=== PATIENT | female | born 1960 | race African-American/Black ===

== ENCOUNTER 2023-11-26 20:26 | Emergency (ER) | payer OTHER ==
[~2023-11-26] VITALS: Ht 152.4 cm; Wt 92.5 kg
[2023-11-26 21:36] LABS: Basophils # (auto) 0.1 10 ^3/uL (0-0.2); Basophils % (auto) 0.8 % (0.0-2.0); Eosinophils # (auto) 0.3 10 ^3/uL (0-0.8); Eosinophils % (auto) 4.9 % (0.0-7.0); Hematocrit 42.7 % (36.0-46.0); Hemoglobin 13.9 g/dL (12.2-16.2); Lymphocytes # (auto) 2.1 10 ^3/uL (0.4-5.4); Lymphocytes % (auto) 34.5 % (10.0-50.0); Mean Corpuscular Hemoglobin 30.9 pg (28.0-32.0); Mean Corpuscular Hgb Conc. 32.7 g/dL (32.0-36.0); Mean Corpuscular Volume 94.5 fL (80.0-100.0); Monocytes # (auto) 0.5 10 ^3/uL (0-1.3); Monocytes % (auto) 7.4 % (0.0-12.0); Neutrophils # (auto) 3.2 10 ^3/uL (1.6-8.6); Neutrophils % (auto) 52.4 % (37.0-80.0); Nucleated Red Blood Cells % 0.1 %; Red Blood Cells 4.51 10^6/uL (4.0-5.20); Red Cell Distribution Width 14.7 % (11.8-14.3); White Blood Cell 6.2 10^3/uL (4.4-10.8)
[2023-11-26 21:50] LABS: Alanine Aminotransferase 49 U/L (7-40); Albumin 4.4 g/dL (3.2-4.8); Alkaline Phosphatase 118 U/L (46-116); Anion Gap 7 (5-15); Aspartate Aminotransferase 55 U/L (13-40); BUN/Creatinine Ratio 6.4 (10.0-20.0); Bilirubin, Total 0.4 mg/dL (0.2-1.0); Blood Urea Nitrogen 7 mg/dL (9-23); Calcium 9.4 mg/dL (8.7-10.4); Carbon Dioxide 25 mmol/L (20-30); Chloride 109 mmol/L (98-107); Glucose 105 mg/dL (74-106); Potassium 3.9 mmol/L (3.5-5.1); Sodium 141 mmol/L (136-145)
[2023-11-26] MEDS ORDERED: SODIUM CHLORIDE 0.9% 1,000 ML IV ONE (22:00)
[2023-11-26] MEDS ORDERED: PROMETHAZINE-DM 5 ML ORAL SYRUP PO ONE (22:00)
[2023-11-26] MEDS ORDERED: METOCLOPRAMIDE HCL 5MG/ml INJ 2ml VIAL IV ONE (22:00)
[2023-11-26] MEDS ORDERED: DexAMETHasone SOD PHOS 10MG/1ML VIAL INJ IV ONE (22:00)
[2023-11-26] MEDS ORDERED: MORPHINE SULFATE 4 MG/ML SYR/VIAL IV ONE (22:00)
[2023-11-27 00:20] VITALS: PULSE 99; RESP 12; O2SAT 99
[2023-11-27 00:53] LABS: COVID19 ANTIGEN SOFIA FIA NEGATIVE (NEGATIVE); Rapid Influenza A Negative (Negative); Rapid Influenza B Negative (Negative)
[2023-11-27 01:27] LABS: Urine Bacteria FEW /hpf (None Seen); Urine Blood Negative /uL (Negative); Urine Clarity Clear (Clear); Urine Color Yellow (Yellow); Urine Mucus FEW (None Seen); Urine Protein, UAD TRACE (Negative); Urine Specific Gravity 1.015 (1.001-1.035); Urine Urobilinogen Normal (Negative); Urine WBC 2 /hpf (0 - 5)
[2023-11-27] MEDS ORDERED: GUAI600T23 PO (03:22)
[2023-11-27] MEDS ORDERED: PRED20TA2 PO (03:22)
[2023-11-27] MEDS ORDERED: METO-281 PO (03:22)
[2023-11-27] MEDS ORDERED: AUG875T PO (03:22)
[2023-11-27] MEDS ORDERED: IBUP-1456 PO (03:22)
[2023-11-27 03:46] VITALS: BP 105/69; PULSE 104; RESP 18; TEMP 97.9; O2SAT 96
== END 2023-11-27 03:47 | disposition home or self-care (01) ==
LOC: ER 20:26
DX: J40 Bronchitis, not specified as acute or chronic (principal); J44.1 Chronic obstructive pulmonary disease with (acute) exacerbation; R07.89 Other chest pain; Z88.8 Allergy status to other drugs, medicaments and biological substances; Z20.822 Contact with and (suspected) exposure to COVID-19
CPT/HCPCS: 36415; 71045; 80053; 81001; 83880; 84484; 85025; 87426; 87804; 93005; 96361; 96374; 96375; 99284; J1100; J2270; J2765; J7030

== ENCOUNTER 2025-08-16 13:35 | Emergency (ER) | payer OTHER ==
[~2025-08-16] VITALS: Ht 154.9 cm; Wt 96.0 kg
[~2025-08-16 13:35] MED LIST: AUG875T PO; GUAI600T78 PO; IBUP-1456 PO; METO-281 PO; PRED20TA2 PO
--- NOTE | 2025-08-16 14:56 | ED.PDOC ---
History of Present Illness HPI Comments A 65 YEAR OLD FEMALE PRESENTS TO THE ED WITH COMPLAINT OF MIGRAINE HEADACHE AND CHRONIC LOWER BACK PAIN. PATIENT STATES SHE HAS A HISTORY OF MIGRAINE HEADACHES AND HAS BEEN EXPERIENCING 1 FOR THE PAST 2 DAYS. PATIENT REPORTS SHE ALSO HAS A HISTORY OF CHRONIC LOWER BACK PAIN WITH SCIATICA AND HAS BEEN EXPERIENCING LOWER BACK PAIN THAT RADIATES DOWN HER RIGHT LEG FOR THE PAST 2 DAYS. PATIENT NOTES THAT SHE HAS BEEN TAKING HER IBUPROFEN AND GABAPENTIN WITH NO IMPROVEMENT. PATIENT DENIES SADDLE ANESTHESIA, URINARY INCONTINENCE, BOWEL INCONTINENCE, VISION CHANGES, SLURRED SPEECH, ONE-SIDED WEAKNESS, FACIAL DROOP, FEVER, CHILLS, SHORTNESS OF BREATH, CHEST PAIN, ABDOMINAL PAIN, NAUSEA, VOMITING, OR OTHER COMPLAINTS. NO OTHER SYMPTOMS OR MODIFYING FACTORS AT THIS TIME. PATIENT IS ALERT, ORIENTED X 4, AND HAS STEADY GAIT. Chief Complaint: Headache Time Seen by MD: 13:44 Reviewed Notes: Nurses Notes, Medications, Allergies Allergies: Coded Allergies: Acetaminophen (Verified Allergy, Unknown, 08/16/25) Hydrocodone (Verified Allergy, Unknown, 08/16/25) Ondansetron (Verified Allergy, Unknown, 11/27/23) Home Meds Active Scripts Tramadol HCl (Tramadol HCl) 50 Mg Tab, 50 MG PO BID, #20 TAB Prov:CHARLEEN OSULLIVAN 08/16/25 Meclizine HCl (Meclizine 25) 25 Mg Tab, 25 MG PO BID, #30 TAB Prov:CHARLEEN OSULLIVAN 08/16/25 Guaifenesin (Mucinex) 600 Mg Tab, 600 MG PO Q12HR PRN, #20 TAB prn cough/congestion Prov:JAMES PENN MD 11/27/23 Prednisone (Prednisone) 20 Mg Tab, 40 MG PO DAILY for 4 Days, #8 TAB Prov:JAMES PENN MD 11/27/23 Ibuprofen (Ibuprofen) 800 Mg Tab, 1 TAB PO Q8HPRN PRN, #30 TAB prn pain, take with food Prov:JAMES PENN MD 11/27/23 Metoclopramide Hcl (Reglan) 10 Mg Tab, 10 MG PO QID, #20 TAB prn nausea/vomiting Prov:JAMES PENN MD 11/27/23 Amoxicillin & Pot Clavulanate (AUGMENTIN TABLET) 875 Mg Tb, 875 MG PO BID for 10 Days, #20 TAB Prov:JAMES PENN MD 11/27/23 Information Source: Patient Mode of Arrival: Ambulatory Severity: Moderate Timing: Days Duration: Since onset, Days Prehospital treatment: None Medication Refill: For: Other (MIGRAINE HEADACHE AND SCIATICA) Past Medical History PAST MEDICAL HISTORY: COPD Past Medical History (Other): MIGRAINE HEADACHES, CHRONIC LOWER BACK PAIN Surgical History: Denies all surgeries HIM MANAGER History: No Pertinent HIM MANAGER History Family History Family History: Reviewed,noncontributory to illness Social History Smoker: Other Alcohol: Denies ETOH Use Drugs: Marijuana Lives In: Home Constitutional: denies: chills, diaphoresis, fatigue, fever, malaise, sweats, weakness, others EENTM: denies: blurred vision, double vision, ear bleeding, ear discharge, ear drainage, ear pain, ear ringing, eye pain, eye redness, hearing loss, mouth pain, mouth swelling, nasal discharge, nose bleeding, nose congestion, nose pain, photophobia, tearing, throat pain, throat swelling, voice changes, others Respiratory: denies: cough, hemoptysis, orthopnea, SOB at rest, shortness of breath, SOB with excertion, stridor, wheezing, others Cardiovascular: denies: chest pain, dizzy spells, diaphoresis, Dyspnea on exertion, edema, irregular heart beat, left arm pain, lightheadedness, palpitations, PND, syncope, others Gastrointestinal: denies: abdomen distended, abdominal pain, blood streaked bowels, constipated, diarrhea, dysphagia, difficulty swallowing, hematemesis, melena, nausea, poor appetite, poor fluid intake, rectal bleeding, rectal pain, vomiting, others Genitourinary: denies: abnormal vagina bleeding, burning, dyspareunia, dysuria, flank pain, frequency, hematuria, incontinence, pain, , vagina discharge, urgency, others Neurological: reports: headache; denies: dizziness, fainting, left sided numbness, left sided weakness, numbness, paresthesia, pre-existing deficit, right sided numbness, right sided weakness, seizure, speech problems, tingling, tremors, weakness, others Musculoskeletal: reports: back pain (LOWER BACK PAIN THAT RADIATES DOWN RIGHT LEG), muscle pain; denies: gout, joint pain, joint swelling, muscle stiffness, neck pain Integumetry: denies: bruises, change in color, change in hair/nails, dryness, laceration, lesions, lumps, rash, wounds, others Allergic/Immunocompromised: denies: Difficulty Healing, Frequent Infections, Hives, Itching, others Hematologic/Lymphatic: denies: anemia, blood clots, easy bleeding, easy bruising, swollen glands, others Endocrine: denies: excessive hunger, excessive sweating, excessive thirst, excessive urination, flushing, intolerance to cold, intolerance to heat, unexplained weight gain, unexplained weight loss, others Psychiatric: denies: anxiety, bipolar disorder, depression, hopeless, panic disorder, schizophrenia, sleepless, suicidal, others All Other Systems: Reviewed and Negative Physical Exam General Appearance: No Apparent Distress, Obese HEENT: Normal ENT Inspection, PERRL/EOMI, Pharynx Normal, TMs Normal Neck: Full Range of Motion, Non-Tender, Normal, Normal Inspection Respiratory: Chest Non-Tender, Lungs Clear, No Accessory Muscle Use, No Respiratory Distress, Normal Breath Sounds Cardiovascular: No Edema, No JVD, No Murmur, No Gallop, Normal Peripheral Pulses, Regular Rate/Rhythm Breast Exam: Deferred Gastrointestinal: No Organomegaly, Non Tender, No Pulsatile Mass, Normal Bowel Sounds, Soft Genitalia: Deferred Pelvic: Deferred Rectal: Deferred Extremities: No calf tenderness, Normal capillary refill, Normal inspection, Normal range of motion, Non-tender, No pedal edema Musculoskeletal : Location: Bilateral Extremity Location: Back Apperance: Tenderness (muscle spasm on lower back, no bony tenderness, swelling and deformity. 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 Was a procedure done?: No Differential Dx Considerations may include: MIGRAINE HEADACHE, TENSION HEADACHE, BRAIN MASS, BRAIN BLEED, SCIATICA, HISTORY OF CHRONIC LOWER BACK PAIN, ACUTE EXACERBATION OF CHRONIC LOWER BACK PAIN X-Ray, Labs, Meds, VS Vital Signs Date Time Temp Pulse Resp B/P (MAP) Pulse Ox O2 Delivery O2 Flow Rate FiO2 08/16/25 15:04 98.6 104 16 93/66 (75) 98 98.6 08/16/25 15:04 104 16 98 Room Air 08/16/25 13:37 98.5 115 18 142/[address] HEAD WITHOUT CONTRAST INDICATION: HEADACHE COMPARISON: None TECHNIQUE: CT of the head without intravenous contrast. RADIATION DOSE: CTDIvol: 60.84 mGy, DLP: 60.84 mGy*cm FINDINGS: There is no evidence of acute intracranial hemorrhage, extra-axial collection, mass effect, midline shift, herniation or hydrocephalus. The ventricles, sulci and cisterns are age appropriate. The lazo-white differentiation is intact. The visualized paranasal sinuses and mastoid air cells are clear. The surrounding soft tissues and osseous structures are unremarkable. IMPRESSION: 1. No evidence of acute intracranial hemorrhage, mass effect or hydrocephalus. ATED BY: NARESH MCKEON MD DICTATED DATE/TIME: 08/16/251454 SIGNED BY: NARESH MCKEON MD SIGNED DATE/TIME: 08/16/251454 CC: X-Ray, Labs, Meds, VS Comment EXTERNAL MEDICAL RECORDS REVIEWED: [NONE] INDEPENDENT HISTORIANS: [NONE] SOCIAL DETERMINANTS OF HEALTH: [NONE] LABS ORDERED: NONE REVIEWED AND INTERPRETED RESULTS: NONE IMAGING ORDERED: CT BRAIN TREATMENTS ORDERED: NONE PROCEDURES PERFORMED: NONE CRITICAL CARE TIME: NONE I HAVE DISCUSSED THE PATIENT WITH THE ATTENDING PHYSICIAN DR. PLEITEZ AND HE AGREES WITH THE PATIENT'S PLAN OF CARE AND DISPOSITION. BASED ON HISTORY OF PRESENT ILLNESS, AND PHYSICAL EXAM, PATIENT WILL BE DISCHARGED HOME. DISCUSSED PLAN FOR DISCHARGE HOME WITH RX [ULTRAM]. MEDICATION WARNINGS GIVEN. SHARED DECISION MAKING: DISCUSSED WITH PATIENT THAT THEIR WORKUP WAS NORMAL. PATIENT INSTRUCTED TO FOLLOW UP WITH PRIMARY CARE PROVIDER IN 1-2 DAYS FOR RE- EVALUATION OF SYMPTOMS. PATIENT VERBALIZES UNDERSTANDING TO RETURN TO ED FOR NEW OR WORSENING SYMPTOMS OR IF FOLLOW UP WITH PCP CANNOT BE OBTAINED. PATIENT FEELS COMFORTABLE GOING HOME AT THIS TIME. ALL QUESTIONS ADDRESSED AT TIME OF DISCHARGE. Images Reviewed?: Images reviewed and evaluated by me Time of 1ST Reevaluation: 15:26 Reevaluation 1ST: Improved Patient Education/Counseling: Diagnosis, Treatment, Need For Follow Up Family Education/Counseling: Diagnosis, Treatment, Need For Follow Up Medical Screening: No EMC Exist At This Time SEPSIS Sepsis Screen Date sepsis recognized/suspect: Aug 16, 2025 Time Sepsis recognized/suspect: 1340 Recent Procedure: No On Antibiotic Therapy: No Respiratory Rate >20: No Heart Rate >90: No Temp<36 C (96.8 F) or >38.3 C: No SBP <90 or MAP <65 mmHG: No New Acute Mental Status Change: No Is the patient on CPAP, BIPAP,: No Physician Orders Head Without Contrast (08/16/25 14:18) Vital Signs Date Time Temp Pulse Resp B/P (MAP) Pulse Ox O2 Delivery O2 Flow Rate FiO2 08/16/25 15:04 98.6 104 16 93/66 (75) 98 98.6 08/16/25 15:04 104 16 98 Room Air 08/16/25 13:37 98.5 115 18 142/90 97 98.5 Departure 1 Departure Time of Disposition: 15:26 Impression: Primary Impression: Migraine headache without aura Qualified Codes: G43.009 - Migraine without aura, not intractable, without status migrainosus Additional Impression: Acute exacerbation of chronic low back pain Disposition: HOME / SELF CARE / HOMELESS Condition: Stable Additional Instructions: FOLLOW-UP WITH PCP IN 1 TO 2 DAYS. TAKE MEDICATIONS PRESCRIBED. RETURN TO ED FOR ANY NEW OR WORSENING SYMPTOMS. e-Prescriptions Tramadol HCl (Tramadol HCl) 50 Mg Tab 50 MG PO BID, #20 TAB Prov: CHARLEEN OSULLIVAN 08/16/25 Meclizine HCl (Meclizine 25) 25 Mg Tab 25 MG PO BID, #30 TAB Prov: CHARLEEN OSULLIVAN 08/16/25 Discharged With: Self Critical Care Note Critical Care Time?: No Stability Stability form required: No I personally scribed for CHARLEEN OSULLIVAN ([email or web address]) on 08/16/25 at 14:56. Electronically submitted by Ab Hernandez ([email or web address]). I personally scribed for CHARLEEN OSULLIVAN ([email or web address]) on 08/16/25 at 15:12. Electronically submitted by Ab Hernandez ([email or web address]). CHARLEEN OSULLIVAN Aug 16, 2025 14:56
[2025-08-16 15:04] VITALS: BP 93/66; PULSE 104; RESP 16; TEMP 98.6; O2SAT 98
[2025-08-16] MEDS ORDERED: TRAM-626 PO (15:22)
[2025-08-16] MEDS ORDERED: MECL1TAB42 PO (15:22)
== END 2025-08-16 15:22 | disposition home or self-care (01) ==
LOC: ER 13:35
DX: G43.009 Migraine without aura, not intractable, without status migrainosus (principal); G89.29 Other chronic pain; F12.90 Cannabis use, unspecified, uncomplicated; J44.9 Chronic obstructive pulmonary disease, unspecified; F17.200 Nicotine dependence, unspecified, uncomplicated; Z79.899 Other long term (current) drug therapy; Z88.5 Allergy status to narcotic agent; Z79.52 Long term (current) use of systemic steroids
CPT/HCPCS: 70450

== ENCOUNTER 2025-09-06 11:09 | Emergency (ER) | payer OTHER ==
[~2025-09-06] VITALS: Ht 154.9 cm; Wt 94.5 kg
[~2025-09-06 11:09] MED LIST changes: +MECL1TAB42 PO; +TRAM-626 PO
--- NOTE | 2025-09-06 12:22 | ED.PDOC ---
Chavez. trauma (HPI) HPI Comments A 65 YEAR OLD FEMALE PRESENTS TO THE ED WITH COMPLAINT OF LEFT RIB PAIN, LEFT SHOULDER PAIN, AND LOWER BACK PAIN STATUS POST FALL. PATIENT STATES SHE HAS A HISTORY OF CHRONIC LOWER BACK PAIN AND HER LEG ACCIDENTALLY GAVE OUT A RESULT OF HER BACK PAIN CAUSING HER TO FALL AND LAND ON THE LEFT SIDE OF HER BODY. PATIENT REPORTS SHE IS NOW EXPERIENCING LEFT RIB PAIN, LEFT SHOULDER PAIN, AND LOWER BACK PAIN THAT IS WORSE WITH MOVEMENT. PATIENT DENIES HEAD INJURY, NECK INJURY, LOC, SADDLE ANESTHESIA, URINARY INCONTINENCE, BOWEL INCONTINENCE, FEVER, CHILLS, SHORTNESS OF BREATH, CHEST PAIN, ABDOMINAL PAIN, NAUSEA, VOMITING, HEADACHE, OR OTHER COMPLAINTS. NO OTHER SYMPTOMS OR MODIFYING FACTORS AT THIS TIME. PATIENT IS ALERT, ORIENTED X 4, AND HAS STEADY GAIT. Chief Complaint: Fall Injury Time Seen by MD: 11:35 Reviewed notes: Nurses Notes, Medications, Allergies Allergies: Coded Allergies: Acetaminophen (Verified Allergy, Unknown, 08/16/25) Hydrocodone (Verified Allergy, Unknown, 08/16/25) Ondansetron (Verified Allergy, Unknown, 11/27/23) Home Meds Active Scripts Methocarbamol (Methocarbamol) 750 Mg Tab, 750 MG PO BID, #30 TAB Prov:CHARLENE OSULLIVAN 09/06/25 Ibuprofen (Ibuprofen) 800 Mg Tab, 1 TAB PO TID, #30 TAB Prov:CHARLEEN OSULLIVAN 09/06/25 Tramadol HCl (Tramadol HCl) 50 Mg Tab, 50 MG PO BID, #20 TAB Prov:CHARLEEN OSULLIVAN 08/16/25 Meclizine HCl (Meclizine 25) 25 Mg Tab, 25 MG PO BID, #30 TAB Prov:CHARLEEN OSULLIVAN 08/16/25 Guaifenesin (Mucinex) 600 Mg Tab, 600 MG PO Q12HR PRN, #20 TAB prn cough/congestion Prov:JAMES PENN MD 11/27/23 Prednisone (Prednisone) 20 Mg Tab, 40 MG PO DAILY for 4 Days, #8 TAB Prov:JAMES PENN MD 11/27/23 Ibuprofen (Ibuprofen) 800 Mg Tab, 1 TAB PO Q8HPRN PRN, #30 TAB prn pain, take with food Prov:JAMES PENN MD 11/27/23 Metoclopramide Hcl (Reglan) 10 Mg Tab, 10 MG PO QID, #20 TAB prn nausea/vomiting Prov:JAMES PENN MD 11/27/23 Amoxicillin & Pot Clavulanate (AUGMENTIN TABLET) 875 Mg Tb, 875 MG PO BID for 10 Days, #20 TAB Prov:JAMES PENN MD 11/27/23 Information Source: Patient Mode of Arrival: Ambulatory Severity: Moderate Timing: Hours Duration: Since onset, Hours Prehospital treatment: None Location: Back, (L) Shoulder, Other (LEFT RIB) Location of laceration: None Mechanism: Fall Associated signs and symtoms: None Past Medical History PAST MEDICAL HISTORY: COPD Past Medical History (Other): LUPUS AND LOW BACK PAIN Surgical History: Denies all surgeries DURALUMIN METALWORKER History: No Pertinent DURALUMIN METALWORKER History Family History Family History: Reviewed,noncontributory to illness Social History Smoker: Non-Smoker Alcohol: Denies ETOH Use Drugs: Marijuana Lives In: Home Constitutional: denies: chills, diaphoresis, fatigue, fever, malaise, sweats, weakness, others EENTM: denies: blurred vision, double vision, ear bleeding, ear discharge, ear drainage, ear pain, ear ringing, eye pain, eye redness, hearing loss, mouth pain, mouth swelling, nasal discharge, nose bleeding, nose congestion, nose pain, photophobia, tearing, throat pain, throat swelling, voice changes, others Respiratory: denies: cough, hemoptysis, orthopnea, SOB at rest, shortness of breath, SOB with excertion, stridor, wheezing, others Cardiovascular: denies: chest pain, dizzy spells, diaphoresis, Dyspnea on exertion, edema, irregular heart beat, left arm pain, lightheadedness, palpitations, PND, syncope, others Gastrointestinal: denies: abdomen distended, abdominal pain, blood streaked bowels, constipated, diarrhea, dysphagia, difficulty swallowing, hematemesis, melena, nausea, poor appetite, poor fluid intake, rectal bleeding, rectal pain, vomiting, others Genitourinary: denies: abnormal vagina bleeding, burning, dyspareunia, dysuria, flank pain, frequency, hematuria, incontinence, pain, , vagina discharge, urgency, others Neurological: denies: dizziness, fainting, headache, left sided numbness, left sided weakness, numbness, paresthesia, pre-existing deficit, right sided numbne ss, right sided weakness, seizure, speech problems, tingling, tremors, weakness, others Musculoskeletal: reports: back pain, joint pain, muscle pain, others (LEFT SHOULDER PAIN, LEFT RIB PAIN); denies: gout, joint swelling, muscle stiffness, neck pain Integumetry: denies: bruises, change in color, change in hair/nails, dryness, laceration, lesions, lumps, rash, wounds, others Allergic/Immunocompromised: denies: Difficulty Healing, Frequent Infections, Hives, Itching, others Hematologic/Lymphatic: denies: anemia, blood clots, easy bleeding, easy bruising, swollen glands, others Endocrine: denies: excessive hunger, excessive sweating, excessive thirst, excessive urination, flushing, intolerance to cold, intolerance to heat, unexplained weight gain, unexplained weight loss, others Psychiatric: denies: anxiety, bipolar disorder, depression, hopeless, panic disorder, schizophrenia, sleepless, suicidal, others All Other Systems: Reviewed and Negative Physical Exam General Appearance: No Apparent Distress, Obese HEENT: Normal ENT Inspection, PERRL/EOMI, Pharynx Normal, TMs Normal Neck: Full Range of Motion, Non-Tender, Normal, Normal Inspection Respiratory: Chest Non-Tender, Lungs Clear, No Accessory Muscle Use, No Respiratory Distress, Normal Breath Sounds Cardiovascular: No Edema, No JVD, No Murmur, No Gallop, Normal Peripheral Pulses, Regular Rate/Rhythm Breast Exam: Deferred Gastrointestinal: No Organomegaly, Non Tender, No Pulsatile Mass, Normal Bowel Sounds, Soft Genitalia: Deferred Pelvic: Deferred Rectal: Deferred Extremities: No calf tenderness, Normal capillary refill, Normal range of motion, No pedal edema, Tender (ON LEFT SHOULDER, NO BONY TENDERNESS, SWELLING AND DEFORMITY, NORMAL ROM. ) Musculoskeletal : Location: Bilateral Extremity Location: Back, Other (LEFT RIBS ) Apperance: Tenderness (TENDERNESS AND MUSCLE SPASM ON LEFT MIDDLE RIBS, NO BONY TENDERNESS, SWELLING AND DEFORMITY. ), Tenderness: Moderate (TENDERNESS AND MUSCLE SPASM ON LOWER BACK, NO BONY TENDERNESS AND SWELLING, NO DEFORMITY OF LOWER BACK. 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 Was a procedure done?: No Differential Diagnosis Multiple Trauma: Fractures, Spine Injury, Contusion, Other (MUSCLE STRAIN, INTERCOSTAL MUSCLE STRAIN, RIB CONTUSION, RIB SPRAIN, LOW BACK STRAIN) Neck Injury: N/A X-Ray, Labs, Meds, VS Vital Signs Date Time Temp Pulse Resp B/P (MAP) Pulse Ox O2 Delivery O2 Flow Rate FiO2 09/06/25 13:12 98.3 108 18 93/60 (71) 95 98.3 09/06/25 13:12 108 18 95 Room Air 09/06/25 11:12 97.9 112 18 118/81 94 97.9 EXAMINATION: XY L RIB X RAY INDICATION: Pain; FALL COMPARISON: XR CHEST 1 VIEW on DOS: 02/15/25, XY CHEST PORTABLE on DOS: 11/26/23 TECHNIQUE: Frontal view of the chest and 3 views of the left ribs history FINDINGS: No focal consolidation, pleural effusion or significant pneumothorax. Bibasilar opacities. Normal cardiomediastinal silhouette. No displaced bilateral rib fracture. IMPRESSION: Bibasilar opacities. No displaced left rib fracture. ATED BY: JOVANA ISAAC MD DICTATED DATE/TIME: 09/06/25 1336 SIGNED BY: JOVANA ISAAC MD SIGNED DATE/TIME: 09/06/25 1336 CC: EXAM: XY L SHOULDER 2+ VIEW XRAY CLINICAL INDICATION: FALL TECHNIQUE: XY L SHOULDER 2+ VIEW XRAY Comparison: None FINDINGS/IMPRESSION: There is no evidence of acute fracture or dislocation. The visualized joint space is well maintained. The alignment is anatomical. There is no radiopaque foreign body. ATED BY: NATHANAEL RODRIGUEZ MD DICTATED DATE/TIME: 09/06/25 1329 SIGNED BY: NATHANAEL RODRIGUEZ MD SIGNED DATE/TIME: 09/06/25 132 CC: INDICATION: FALL TECHNIQUE: Frontal and lateral views of the lumbar spine were obtained. COMPARISON: None FINDINGS: . There are no fractures or subluxations. Vertebral body heights and disc spaces are well maintained. Paravertebral soft tissues are unremarkable. IMPRESSION: 1. Of the visualized spine, there is no evidence for fracture or subluxation. ATED BY: NATHANAEL RODRIGUEZ MD DICTATED DATE/TIME: 09/06/251327 SIGNED BY: NATHANAEL RODRIGUEZ MD SIGNED DATE/TIME: 09/06/251327 CC: X-Ray, Labs, Meds, VS Comment EXTERNAL MEDICAL RECORDS REVIEWED: [NONE] INDEPENDENT HISTORIANS: [NONE] SOCIAL DETERMINANTS OF HEALTH: [NONE] LABS ORDERED: NONE REVIEWED AND INTERPRETED RESULTS: NONE IMAGING ORDERED: XR L-SPINE, XR SHOULDER LT, XR RIBS LT TREATMENTS ORDERED: TORADOL 60MG IM PROCEDURES PERFORMED: NONE CRITICAL CARE TIME: NONE I HAVE DISCUSSED THE PATIENT WITH THE ATTENDING PHYSICIAN DR. REDDY AND HE AGREES WITH THE PATIENT'S PLAN OF CARE AND DISPOSITION. BASED ON HISTORY OF PRESENT ILLNESS, AND PHYSICAL EXAM, PATIENT WILL BE DISCHARGED HOME. DISCUSSED PLAN FOR DISCHARGE HOME WITH RX [MOTRIN AND ROBAXIN]. MEDICATION WARNINGS GIVEN. SHARED DECISION MAKING: DISCUSSED WITH PATIENT THAT THEIR WORKUP WAS NORMAL. PATIENT INSTRUCTED TO FOLLOW UP WITH PRIMARY CARE PROVIDER IN 1-2 DAYS FOR RE- EVALUATION OF SYMPTOMS. PATIENT VERBALIZES UNDERSTANDING TO RETURN TO ED FOR NEW OR WORSENING SYMPTOMS OR IF FOLLOW UP WITH PCP CANNOT BE OBTAINED. PATIENT FEELS COMFORTABLE GOING HOME AT THIS TIME. ALL QUESTIONS ADDRESSED AT TIME OF DISCHARGE. Images Reviewed?: Images reviewed and evaluated by me Time of 1ST Reevaluation: 14:20 Reevaluation 1ST: Improved Patient Education/Counseling: Diagnosis, Treatment, Need For Follow Up Family Education/Counseling: Diagnosis, Treatment, Need For Follow Up Medical Screening: No EMC Exist At This Time Departure 1 Departure Time of Disposition: 14:20 Impression: Primary Impression: Intercostal muscle strain Qualified Codes: S29.011A - Strain of muscle and tendon of front wall of thorax, initial encounter Additional Impressions: Muscle strain of left shoulder Qualified Codes: S46.912A - Strain of unspecified muscle, fascia and tendon at shoulder and upper arm level, left arm, initial encounter Low back strain Qualified Codes: S39.012A - Strain of muscle, fascia and tendon of lower back, initial encounter Status post fall Disposition: 01 HOME / SELF CARE / HOMELESS Condition: Stable Additional Instructions: FOLLOW-UP WITH PCP IN 1 TO 2 DAYS. TAKE MEDICATIONS PRESCRIBED. RETURN TO ED FOR ANY NEW OR WORSENING SYMPTOMS. e-Prescriptions Methocarbamol (Methocarbamol) 750 Mg Tab 750 MG PO BID, #30 TAB Prov: CHARLEEN OSULLIVAN 09/06/25 Ibuprofen (Ibuprofen) 800 Mg Tab 1 TAB PO TID, #30 TAB Prov: CHARLEEN OSULLIVAN 09/06/25 Discharged With: Self, Relative Critical Care Note Critical Care Time?: No Stability Stability form required: No I personally scribed for CHARLEEN OSULLIVAN ([email or web address]) on 09/06/25 at 12:22. Electronically submitted by Ab Hernandez ([email or web address]). I personally scribed for CHARLEEN OSULLIVAN ([email or web address]) on 09/06/25 at 13:44. Electronically submitted by Ab Hernandez ([email or web address]). CHARLEEN OSULLIVAN Sep 06, 2025 12:22
[2025-09-06 13:12] VITALS: BP 93/60; PULSE 108; RESP 18; TEMP 98.3; O2SAT 95
--- NOTE | 2025-09-06 13:31 | DVH ---
EXAM: XY L SHOULDER 2+ VIEW XRAY CLINICAL INDICATION: FALL TECHNIQUE: XY L SHOULDER 2+ VIEW XRAY Comparison: None FINDINGS/IMPRESSION: There is no evidence of acute fracture or dislocation. The visualized joint space is well maintained. The alignment is anatomical. There is no radiopaque foreign body.
--- NOTE | 2025-09-06 13:31 | DVH ---
INDICATION: FALL TECHNIQUE: Frontal and lateral views of the lumbar spine were obtained. COMPARISON: None FINDINGS: . There are no fractures or subluxations. Vertebral body heights and disc spaces are well m aintained. Paravertebral soft tissues are unremarkable. IMPRESSION: 1. Of the visualized spine, there is no evidence for fracture or subluxation.
--- NOTE | 2025-09-06 13:38 | DVH ---
EXAMINATION: XY L RIB X RAY INDICATION: Pain; FALL COMPARISON: XR CHEST 1 VIEW on DOS: 02/15/25, XY CHEST PORTABLE on DOS: 11/26/23 TECHNIQUE: Frontal view of the chest and 3 views of the left ribs history FINDINGS: No focal consolidation, pleural effusion or significant pneumothorax. Bibasilar opacities. Normal ca rdiomediastinal silhouette. No displaced bilateral rib fracture. IMPRESSION: Bibasilar opacities. No displaced left rib fracture.
[2025-09-06] MEDS ORDERED: METH-1182 PO (13:49)
[2025-09-06] MEDS ORDERED: IBUP-1456 PO (13:49)
[2025-09-06] MEDS: KETOROLAC TROMETH 60MG/2ML VIAL IM ONE (14:11)
== END 2025-09-06 14:13 | disposition home or self-care (01) ==
LOC: ER 11:12
DX: S29.011A Strain of muscle and tendon of front wall of thorax, initial encounter (principal); S39.012A Strain of muscle, fascia and tendon of lower back, initial encounter; S46.912A Strain of unspecified muscle, fascia and tendon at shoulder and upper arm level, left arm, initial encounter; J44.9 Chronic obstructive pulmonary disease, unspecified; Z88.5 Allergy status to narcotic agent; Z98.890 Other specified postprocedural states; W18.39XA Other fall on same level, initial encounter; Y93.89 Activity, other specified; Y92.89 Other specified places as the place of occurrence of the external cause; Y99.8 Other external cause status
CPT/HCPCS: 71101; 72100; 73030; 96372; 99283; J1885